=== PATIENT | male | born 1980 | race Native Hawaiian/Other Pacific Islander ===

== ENCOUNTER 2017-05-23 14:06 | Emergency (ER) | payer BC ==
[2017-05-23] MEDS ORDERED: Lidocaine 1% Inj (20ml) ONE (14:18)
[2017-05-23 14:20] VITALS: BP 139/86; PULSE 84; RESP 18; TEMP 98; O2SAT 99
--- NOTE | 2017-05-23 15:03 | ED PDOC ---
Lower Extremity Pain/Injury Time Seen by Provider: 05/23/17 14:20 Chief Complaint (Nursing): Lower Extremity Problem/Injury Chief Complaint (Provider): Right lower leg laceration, tetanus UTD History Per: Patient History/Exam Limitations: no limitations Onset/Duration Of Symptoms: Days Current Symptoms Are (Timing): Still Present Additional Complaint(s): Pt states he was at work and tripped over a garbage pale. Pt states he is not sure what he cut his leg on. Tetanus UTD. Pt cleaned area and applied steri- strips [employer]. Past Medical History Reviewed: Historical Data, Nursing Documentation, Vital Signs Vital Signs: Last Vital Signs Temp 98 F 05/23/17 14:16 Pulse 84 05/23/17 14:16 Resp 18 05/23/17 14:16 BP 139/86 05/23/17 14:16 Pulse Ox 99 05/23/17 14:16 - Medical History PMH: No Chronic Diseases - Surgical History Surgical History: No Surg Hx - Family History Family History: States: No Known Family Hx - Living Arrangements Living Arrangements: With Family - Social History Current smoker - smoking cessation education provided: No - Home Medications Home Medications: Ambulatory Orders Medication Instructions Recorded Cephalexin [Keflex] 500 mg PO BID #20 capsule 05/23/17 - Allergies Allergies/Adverse Reactions: Allergies Allergy/AdvReac Type Severity Reaction Status Date / Time No Known Allergies Allergy Verified 05/23/17 14:50 Review of Systems ROS Statement: Except As Marked, All Systems Reviewed And Found Negative Skin: Positive for: Other (Laceration, right lower leg ) Physical Exam - Reviewed Nursing Documentation Reviewed: Yes Vital Signs Reviewed: Yes - Physical Exam Appears: Positive for: Well, Non-toxic, No Acute Distress Head Exam: Positive for: ATRAUMATIC, NORMAL INSPECTION, NORMOCEPHALIC Skin: Positive for: Warm. Negative for: Normal Color (7 cm curvilinear laceration of the right lower leg, no active bleeding) Eye Exam: Positive for: Normal appearance ENT: Positive for: Normal ENT Inspection Neck: Positive for: Normal, Painless ROM Respiratory: Negative for: Accessory Muscle Use, Respiratory Distress Back: Positive for: Normal Inspection Extremity: Positive for: Normal ROM. Negative for: Deformity, Swelling Neurologic/Psych: Positive for: Alert, Oriented - ECG O2 Sat by Pulse Oximetry: 99 Medical Decision Making Medical Decision Making: Podiatry consult completed. Laceration repair by residents. Disposition - Clinical Impression Clinical Impression: Laceration of lower leg - Disposition Disposition Time: 14:54 Condition: STABLE Prescriptions: Cephalexin [Keflex] 500 mg PO BID #20 capsule Instructions: Care For Your Stitches (ED)
--- NOTE | 2017-05-23 15:06 | CP.PCM.CON ---
History of Present Illness - History of Present Illness History of Present Illness: This is a 37 y/o male who was seen and evaluated at bedside in the ED after request for podiatry consultation. Patient states that he tripped over a trash can in his office approximately 20 minutes prior to his arrival to the ED. He now presents with a stable laceration on his Right medial leg which is covered with multiple steri-strips. He complains of moderate pain at the laceration site. Denies any burning, tingling or numbness and states that he is able to ambulate without any difficulty. He states that he is up-to-date with respect to his Tetanus shots. He denies any food or medication allergies. No other pedal complaints reported at this time. Past Patient History - Past Social History Smoking Status: Never Smoked - PSYCHIATRIC Hx Substance Use: No Meds Home Medications: Home Medication List Medication Instructions Recorded Confirmed Type Cephalexin [Keflex] 500 mg PO BID #20 capsule 05/23/17 Rx Allergies/Adverse Reactions: Allergies Allergy/AdvReac Type Severity Reaction Status Date / Time No Known Allergies Allergy Verified 05/23/17 14:50 Physical Exam - Constitutional Appears: Non-toxic, No Acute Distress - Neurological Exam Neurological exam: Alert, Oriented x3 - Psychiatric Exam Psychiatric exam: Normal Affect, Normal Mood - Skin Skin Exam: Normal Color, Warm - Additional Findings Additional findings: Right lower extremity exam: Derm: open laceration noted to medial aspect of Right lower leg approximately 6cm in length; laceration probes to subcutaneous tissues; no bone/muscle/tendon exposure is noted; no erythema; no edema; no purulence; no malodor; no clinical signs of infection noted. Minimal serosanguinous drainage is present Vascular: DP/PT pulses 2/4; capillary fill time < 3 sec x5; normal temperature gradient present Neuro: light touch, protective sensation, and motor function grossly intact Ortho: pain elicited upon palpation of the laceration site Results - Vital Signs Recent Vital Signs: Last Vital Signs Temp 98 F 05/23/17 14:16 Pulse 84 05/23/17 14:16 Resp 18 05/23/17 14:16 BP 139/86 05/23/17 14:16 Pulse Ox 99 05/23/17 14:16 Assessment & Plan - Assessment and Plan (Free Text) Assessment: 37 y/o male with Right medial leg laceration secondary to trauma Plan: Patient seen and evaluated at bedside in ED Discussed with attending, Dr. Almonte, who is in agreement of the treatment plan The previously applied steri-strips were removed The laceration was now thoroughly irrigated with a copious amount of solution consisting of a mixture of sterile normal saline and betadine Approximately 6cc of 1% Lidocaine plain were used to give a local block to the Right leg Once local anesthesia was obtained, the laceration site was now sutured with 4- 0 nylon in an interrupted horizontal mattress suture technique The repaired laceration site was now dressed with topical bacitracin, telfa, DSD and an NAVEED bandage Patient tolerated the procedure well and with no complications Patient to be discharged with Rx. for Keflex, as per ED attending
== END 2017-05-23 15:00 | disposition home or self-care (01) ==
LOC: H.ER 14:06
DX: S81.811A Laceration without foreign body, right lower leg, initial encounter (principal); W26.8XXA Contact with other sharp object(s), not elsewhere classified, initial encounter; Y99.0 Civilian activity done for income or pay